=== PATIENT | female | born 1960 | race African-American/Black ===

== ENCOUNTER 2025-06-03 15:38 | Outpatient (REF) | payer MEDICARE, MEDICAID, SELFPAY | END 2025-06-03 15:39 | disposition home or self-care (01) | LOC: HO.LAB 15:38 | PROVIDERS: PCP Internal Medicine; Visit Provider Psychiatry & Neurology Neurology | DX: G56.03 Carpal tunnel syndrome, bilateral upper limbs (principal); M79.7 Fibromyalgia; G47.33 Obstructive sleep apnea (adult) (pediatric) | CPT/HCPCS: 36415; 82550; 85652; 99202 ==

== ENCOUNTER 2025-06-03 15:38 | Outpatient (AMB) | payer MEDICARE, MEDICAID, SELFPAY ==
--- OUTSIDE RECORDS SUMMARY | 2024-03-05 16:04 | XMS_ITS | Encounter Summary ---
Author Organization [facility] Address [address] [place] [address] Care Team Providers Care Multi Spindle Operator Name Role Phone Azeem Landry MD Primary Care Provider [phone] Encounter Details Date Type Department Care Team (Late st Contact Info) Description 03/05/2024 5:04 PM EDT Hospital Encounter TH HISTORIC ENCOUNTERS EASTERN CONVERSION ONLY Mira Mello PA [address] [place] [address] Social History Tobacco Use Types Packs/Day Years Used Date Smoking Tobacco: Never Smokeless Tobacco: Never Alcohol Use Standard Drinks/Week Comments Never 0 (1 standard drink = 0.6 oz pur e alcohol) Comments No Sex and Gender Information Value Date Recorded Sex Assigned at Not on file Legal Sex Female 12:11 PM EST Gender Identity Not on file Sexual Orientation Not on file documented as of this encounter Plan of Treatment Upcoming Encounters Date Type Department Care Team (Late st Contact Info) Description 06/26/2025 3:15 PM EST Appointment Bone Density [address] [address] 07/16/2025 1:00 PM EST Office Visit Internal Medicine - [address] [address] Azeem Landry MD [address] [place] [phone] documented as of this encounter Visit Diagnoses Not on filedocumented in this encounter Care Teams Multi Spindle Operator Relationship Specialty Start Date End Date Azeem Landry MD PCP - General 06/30/08 03/29/24 documented as of this encounter
--- NOTE | 2025-06-03 15:49 | A.OFFVIS_ITS ---
Intake Visit Reasons: WEAKNESS OF BOTH UPPER EXT HPI Comments Details: The patient is a 64-year-old female presenting with complaints of generalized muscle soreness, bilateral hand weakness, and poor sleep. She reports experiencing generalized muscle soreness throughout most of her body for approximately one year. She has also noticed progressive weakness in both hands, describing a loss of pulp mixer strength that causes her to drop objects, such as glasses. Associated symptoms include numbness, tingling, and aching in her hands, which are present throughout the day. She has a history of seeing an arthritis specialist for her hands. For the last 2-3 years, the patient has experienced significant sleep disturbance, now reporting that she does not feel she is sleeping at night. She wakes up frequently, at least eight times per night, with extreme mouth dryness that requires her to drink water. She reports snoring badly, sleeping with her mouth open, and gasping for air, sometimes waking up suddenly. This results in significant daytime sleepiness. A review of past labs from [place] revealed a normal CBC, metabolic profile, and liver enzymes. Her rheumatoid factor was less than 10, CRP was 0.54, TSH was 0.71, and Sjogren disease antibodies were negative. [facility] Medical History (Updated 06/03/25 @ 16:07 by Derrick Soler MD) Carpal tunnel syndrome Review of Systems Narrative - GENERAL: Reports daytime sleepiness and fatigue. - PSYCHIATRIC: Denies stress. - HEENT: Reports severe dry mouth (xerostomia), particularly at night. - RESPIRATORY: Reports snoring, sleeping with mouth open, and gasping for air at night. - MUSCULOSKELETAL: Reports constant, generalized muscle soreness and aching for approximately one year. Reports progressive weakness in both hands. - NEUROLOGICAL: Reports numbness, tingling, and aching in hands throughout the day. Reports frequent awakenings and waking up suddenly from sleep. Physical Exam Neuro Other: Mental Status: Alert and oriented to person, place, and time. Normal attention. Normal spontaneous speech, fluency, and comprehension. No obvious issues with mood and memory. Affect is appropriate. Cranial Nerves: CN II: Visual gongora full to confrontation, visual acuity intact. CN III, IV, : Pupils equal, round, reactive to light and accommodation. Extraocular movements are normal. CN V: Facial sensation is normal. CN VII: Facial movements symmetrical. CN VIII: Hearing intact to bedside conversation is normal. CN IX, X: Palate elevates symmetrically. CN XI: Shoulder shrug and head turn symmetrical. CN XII: Tongue midline without atrophy or fasciculations. Motor: Bulk and tone normal in all extremities. No significant muscle weakness in arms and legs. No drift. Reflexes: Deep tendon reflexes 1+ and symmetric. Plantar response down-going bilaterally. Coordination: Tempqs-id-vixo and qxfr-pv-tnnc testing normal. No dysmetria. Gait and Station: No obvious gait abnormality. No ataxia or instability. Extrapyramidal: Full facial expressions and blinking. No rigidity. Movements are appropriate with no tremor or abnormality. Speech: Normal; no dysarthria or tremor. Results Reviewed Results Reviewed: Labs done at [facility] this year: Her rheumatoid factor was less than 10, Sjogren disease antibodies were normal, CRP level was 0.54, TSH was 0.71, metabolic profile was normal, liver enzymes were normal, CBC was normal. Assessment & Plan Assessment & Plan (1) Obstructive sleep apnea: Code(s): G47.33 - Obstructive sleep apnea (adult) (pediatric) Category: Medical (2) Carpal tunnel syndrome: Code(s): G56.00 - Carpal tunnel syndrome, unspecified upper limb Category: Medical Qualifiers: Laterality: bilateral Qualified Code(s): G56.03 - Carpal tunnel syndrome, bilateral upper limbs (3) Myalgia: Code(s): M79.10 - Myalgia, unspecified site Category: Medical Plan Impression: a: Probably obstructive sleep apnea b: Probably bilateral carpal tunnel syndrome c: Myalgia that might be due to untreated sleep apnea Rec: a: Home sleep study b: EMG/NCS hands c: CPK, ESR I discussed with the patient that her symptoms of fatigue, snoring, and waking up gasping for air are very likely due to sleep apnea. I explained the plan to order two main tests: a home sleep study to confirm sleep apnea and a nerve test for her hands to evaluate the weakness and numbness. I also informed her that we would be ordering additional blood tests specific to her muscle aches, which could be done on the first floor today. I advised her that my paralegal legal secretary would arrange the sleep study and nerve test, and we will schedule a follow-up appointment to review the results of all tests. Orders: Orders RT home sleep study Today G47.33 - Obstructive sleep apnea (adult) (pediatric) NE nerve conduction velocity Today G56.00 - Carpal tunnel syndrome, unspecified upper limb NE electromyogram (EMG) Today G56.00 - Carpal tunnel syndrome, unspecified up per limb Creatine Kinase Total Today M79.7 - Fibromyalgia Erythrocyte Sedimentation Rate Today M79.7 - Fibromyalgia Coding Level of Care Code New Pt Level 4 (81886) Diagnoses Obstructive sleep apnea G47.33 Bilateral carpal tunnel syndrome G56.03 Laterality: bilateral Myalgia M79.10
--- OUTSIDE RECORDS SUMMARY | 2025-06-03 18:53 | XMS_ITS ---
Author Name [facility] Organization Unknown History of Medication Use Medication Directions Dispensed Refills Start Date End Date Stat us ergocalciferol (VITAMIN D2) capsule 98081 units Take 1 capsule (50,000 Units total) by mouth once a week. 11/30/2023 active Magnesium 400 MG CAPS Take 400 mg by mouth daily. 11/29/2023 active Riboflavin 400 MG CAPS Take 400 mg by mouth daily. 11/29/2023 active SUMAtriptan (IMITREX) 50 MG tablet Take 1 tablet (50 mg total) by mouth every 2 (two) hours as needed. 11/29/2023 active vitamin B-12 (CYANOCOBALAMIN) 500 MCG tablet Take 1 tablet (500 mcg total) by mouth daily. 11/29/2023 active amLODIPine (NORVASC) tablet 5 mg Take 1 tablet (5 mg total) by mouth daily. 10/19/2023 active butalbital-acetaminoph en-caffeine 50-325-40 MG per tablet TAKE 1 TABLET BY MOUTH EVERY 4 HOURS NEEDED FOR PAIN FOR UP TO 28 DAYS 10/14/2023 active levothyroxine (SYNTHROID) tablet 88 mcg Take 1 tablet (88 mcg total) by mouth daily. 06/07/2023 active Allergies Allergen Reaction Severity Comment Documented Date Source Statu s IODINATED CONTRAST MEDIA Tight throat, N&V, no hives. 10/06/2011 [facility]G active Problems Problem Status Onset Date Problem Type Date of Resolution Source Post-concussion headache active EncounterDiagnosisAct CTTHNE MG Concussion with loss of consciousness, sequela (HCC) active EncounterDiagnosisAct CTTHN EMG Vitamin D deficiency, unspecified active EncounterDiagnosisAct CTTHNE MG Care Team Organization Name Specialty Phone Email Start Date End Da te [facility] 01/22/2025 [facility] Azeem Landry Primary Care 11/11/2022 01/22/20 [facility] Azeem Landry Primary Care 04/12/2022 01/22/20 24
--- OUTSIDE RECORDS SUMMARY | 2025-06-03 18:53 | XMS_ITS | Clinical Summary ---
Author Organization [address] [facility] Address [address] [place] [address] Phone Care Team Providers Care Final Inspection Supervisor Name Role Phone Azeem Landry MD Primary Care Provider [phone] Allergies Active Allergy Reactions Criticality Noted Date Comments Iodinated Contrast Media 10/06/2011 Tight throat, N&V, no hives. Medications magnesium oxide (MAG-OX) 400 mg (241.3 elemental magnesium) tablet Take 1 tablet by mouth once daily 90 tablet 4 Active cyanocobalamin (VITAMIN B-12) 500 mcg tablet Take 1 tablet by mouth once daily 90 tablet 4 Active MULTIVITAMIN ORAL SLXYA-Q-THMP OR 1 TAB PO DAILY Active albuterol HFA (PROAIR HFA ; PROVENTIL HFA ; VENTOLIN HFA) 90 mcg/actuation inhaler Inhale 1 puff by mouth if needed. 4 Active butalbital-acetam inophen-caffeine (FIORICET, ESGIC) 50-325-40 mg per tablet Take 1 tablet by mouth 1 (one) time each day. 4 Active ergocalciferol (VITAMIN D-2) 1,250 mcg (50,000 unit) capsule Take 1 capsule (50,000 Units total) by mouth 1 (one) time per week. 4 Active amLODIPine (NORVASC) 5 mg tabletIndications :Primary hypertension Take 1 tablet (5 mg total) by mouth 1 (one) time each day. 90 tablet 1 5 Active levothyroxine (SYNTHROID, LEVOTHROID) 88 mcg tabletIndications :Hypothyroidism, unspecified type Take 1 tablet (88 mcg total) by mouth 1 (one) time each day. 90 each 1 5 09/09/19 26 Active cetirizine (ZyrTEC) 10 mg tablet Take 1 tablet (10 mg total) by mouth 1 (one) time each day. 30 each 2 5 06/12/19 26 Active buPROPion XL (WELLBUTRIN XL) 150 mg 24 hr tablet Take 1 tablet (150 mg total) by mouth 1 (one) time each day. Do not crush, chew, or split. 90 each 1 5 09/11/19 26 Active gabapentin (NEURONTIN) 300 mg capsule Take 1 capsule (300 mg total) by mouth 3 (three) times a day. 270 each 1 5 10/07/19 26 Active Active Problems Problem Noted Date Diagnosed Date Class 1 obesity with body ma ss index (BMI) of 33.0 to 33.9 in adult 05/09/2024 Intractable chronic post-traumatic headache 09/03 Pulmonary nodule 07/27/2023 Hypothyroidism 01/18/2016 Lumbar radicular pain 11/23/2015 HTN (hypertension) 09/10/2014 Major depression 02/18/2013 Encounters Date Type Department Care Team Description 04/07/2025 1:30 PM EST Consult Orthopedic Surgery - [address] [place] [address] Annie Lal PA Arthritis of both hands (Primary Dx); Mucous cyst of digit of hand; [facility] arthritis 04/02/2025 Telephone Internal Medicine - [address] [phone] Azeem Landry MD 03/19/2025 Results Follow-Up [facility] - [facility] [address] [place] [phone] Don Velasco NP 03/14/2025 1:56 PM EDT - 03/14/2025 11:59 PM EDT Hospital Encounter Xray - [address] [place] [phone] Weakness of both upper extremities Discharge Disposition: Home or Self Care 03/14/2025 1:30 PM EDT Office Visit Internal Medicine - [address] [place] [phone] Pavan Sanchez PA Adult general medical examination (Primary Dx); Encounter for screening mammogram for malignant neoplasm of breast; Asymptomatic postmenopausal state; Resistant hypertension; Mixed hyperlipidemia; Prediabetes; Bilateral hearing loss, unspecified hearing loss type 03/14/2025 Telephone Internal Medicine - [address] [place] [phone] Azeem Landry MD 03/12/2025 10:00 AM EDT Office Visit Internal Medicine [address] [place] [phone] Don Velasco NP Hypothyroidism, unspecified type (Primary Dx); Primary hypertension; Pain in both hands; Weakness of both upper extremities from Last 3 Months Immunizations Immunization Administration Dates Next Due Td Tetanus diptheria (Tdvax) 7yo and older 01/23 Medical History Medical History Date Comments Migraine DX:Migraine Hypothyroidism DX:Hypothyroidis m Hypertension DX:Hypertension Social History Tobacco Use Types Packs/Day Years Used Date Smoking Tobacco: Never Smokeless Tobacco: Never Tobacco Cessation:Counseling Given: Not Answered Alcohol Use Standard Drinks/Week Comments Never 0 (1 standard drink = 0.6 oz pur e alcohol) Comments No Sex and Gender Information Value Date Recorded Sex Assigned at Not on file Legal Sex Female 12:11 PM EST Gender Identity Not on file Sexual Orientation Not on file Last Filed Vital Signs Vital Sign Reading Time Taken Comments Blood Pressure 128/76 03/14/2025 1:42 PM EDT Pulse 78 03/14/2025 1:11 PM EDT Temperature 36.8 C (98.2 F) 01/27/2025 11:21 AM EDT Respiratory Rate - - Oxygen Saturation 97% 01/27/2025 11:21 AM EDT Inhaled Oxygen Concentration - - Weight 98 kg (216 lb) 10/03/2024 1:57 PM EDT Height 170.2 cm (5' 7 ) 03/12/2025 10:12 AM EDT Body Mass Index 33.83 09/24/2024 2:40 PM EDT Plan of Treatment Upcoming Encounters Date Type Department Care Team (Late st Contact Info) Description 06/26/2025 3:15 PM EST Appointment Bone Density - [address] [phone] 07/16/2025 1:00 PM EST Office Visit Internal Medicine - [address] [phone] Azeem Landry MD [address] [place] [phone] Health Maintenance Due Date Last Done Comments Breast Cancer Screening 1960 Drug Screen 1960 Non-Opioid Controlled Substance Agreement 1960 Pneumococcal Vaccine: 50+ Years (1 of 1 - PCV) 2008 RSV Immunization Adult Patients (1 - Risk 50-74 years 1-dose series) 2008 Zoster Vaccines (1 of 2) 2008 DTaP,Tdap,and Td Vaccines (2 - Td or Tdap) 01/24/2016 01/23/2006 Medicare Annual Wellness Visit 05/03/2022 Osteoporosis Screening (Bone Density Screening) 05/03/2022 Social Influencers of Health Screening 05/03/2022 Depression Screening 06/05/2024 06/07/2023 Falls Risk Assessment 01/22/2025 01/23/2024 COVID-19 Vaccine ( season) 2025 08/26/2022, 09/04/2020, 08/14/2020 Influenza Vaccine (#1) 2025 Postp oned from 02/03/2025 (Patient Refused) Hypertension/CHF/CAD Annual BMP Blood Test 01/27/2026 01/27/2025, 07/29/2024, 01/23/2024, Additional history exists Colorectal Cancer Screening: Colonoscopy 10/15/2028 10/15/2018 Cholesterol Screening (Lipid Panel) 07/29/2029 07/29/2024, 01/23/2024, 01/23/2024 Hepatitis C Screening Completed 07/25/2017 HIB Vaccines Aged Out No longer eligi ble based on patient's age to complete this topic HPV Vaccines Aged Out No longer eligi ble based on patient's age to complete this topic Hepatitis A Vaccines Aged Out No long er eligible based on patient's age to complete this topic Hepatitis B Vaccines Aged Out No long er eligible based on patient's age to complete this topic IPV Vaccines Aged Out No longer eligi ble based on patient's age to complete this topic MMR Vaccines Aged Out No longer eligi ble based on patient's age to complete this topic Meningococcal ACWY Vaccine Aged Out N o longer eligible based on patient's age to complete this topic Meningococcal B Vaccine Aged Out No l onger eligible based on patient's age to complete this topic RSV Immunization Patients Under 20 months Aged Out No longer eligible based on patient's age to complete this topic Varicella Vaccines Aged Out No longer eligible based on patient's age to complete this topic Procedures Procedure Name Priority Date/Time Associated Diagnosis Comments AK ARTHROCENTESIS/ASPIRA TION/INJECTION SMALL JOINT/BURSA WO U/S GUIDANCE Routine 04/07/2025 1:30 PM EST Mucous cyst of digit of hand XR HAND 3+ VIEWS BILAT Routine 03/14/2025 2:03 PM EDT Weakness of both upper extremities COMPREHENSIVE METABOLIC PANEL Routine 01/27/2025 11:55 AM EDT Chronic fatigue and malaise LIPID PANEL WITH REFLEX TO DIRECT LDL Routine 07/29/2024 2:02 PM EST Primary hypertension FALLS RISK ASSESSMENT Routine 01/23/2024 DEPRESSION SCREENING Routine 06/07/2023 COLONOSCOPY Routine 10/15/2018 HEPATITIS C SCREENING Routine 07/25/2017 from Last 3 Months or Most Recently Relevant to Health Maintenance Results * AK ARTHROCENTESIS/ASPIRATION/INJECTION SMALL JOINT/BURSA WO U/S GUIDANCE (04/07/2025 1:30 PM EST) Narrative Annie Lal PA - 04/07/2025 1:30 PM EST SUMIT Garcia 04/07/2025 3:43 PM S Inj/Asp: L ring DIP Indications: pain Details: 18 G needle, dorsal approach Aspirate: 1 mL Aspiration of mucous cyst at the left ring finger DIP joint with clear gelatinous fluid expressed. us Annie ARANA IN CLINIC/BEDSIDE ORDERABLES Final Result * XR Hand 3+ Views bilat (03/14/2025 2:03 PM EDT) Anatomical Region Laterality Modality Upper Extremities, Hand Bilateral Radiogra phic Imaging 03/14/2025 4:05 PM EDT Impressions 03/14/2025 4:06 PM EDT Severe osteoarthritis of the bilateral DIP joints. -------- FINAL REPORT -------- Dictated By: Paty Pacheco Dictated Date: 03/14/2025 16:05 ET Assigned Physician: Paty Pacheco Reviewed and Electronically Signed By: Paty Pacheco Signed Date: 03/14/2025 16:06 ET Workstation ID: [id number] Transcribed By: Self Edit Transcribed Date: 03/14/2025 16:05 ET Narrative 03/14/2025 4:06 PM EDT HISTORY: OTHER hand pain TECHNIQUE: AP, lateral, and oblique radiographs of the bilateral hands COMPARISON: None FINDINGS: Right: No acute fracture or dislocation of the right hand. There is severe joint space narrowing at the second, fourth and fifth DIP joints with subchondral sclerosis and moderate-sized osteophytes. Left: No acute fracture or dislocation. There are severe joint space narrowing at the third, fourth and fifth DIP joints with subchondral sclerosis and moderate-sized osteophytes. No significant soft tissue swelling. Procedure Note Paty Pacheco MD - 03/14/2025 HISTORY: OTHER hand pain TECHNIQUE: AP, lateral, and oblique radiographs of the bilateral hands COMPARISON: None FINDINGS: Right: No acute fracture or dislocation of the right hand. There is severe jointspace narrowing at the second, fourth and fifth DIP joints withsubchondral sclerosis and moderate-sized osteophytes. Left: No acute fracture or dislocation. There are severe joint space narrowingat the third, fourth and fifth DIP joints with subchondral sclerosis andmoderate-sized osteophytes. No significant soft tissue swelling. IMPRESSION: Severe osteoarthritis of the bilateral DIP joints. -------- FINAL REPORT -------- Dictated By: Paty Pacheco Dictated Date: 03/14/2025 16:05 ET Assigned Physician: Paty Pacheco Reviewed and Electronically Signed By: Paty Pacheco Signed Date: 03/14/2025 16:06 ET Workstation ID: [id number] Transcribed By: Self Edit Transcribed Date: 03/14/2025 16:05 ET Don Velasco RESEARCH ASSOCIATE POLICY IMG XR PROCEDURES Final Result * Comprehensive metabolic panel (01/27/2025 11:55 AM EDT) Sodium 138 133 - 145 mmol/L LAB CHEMISTRY METHOD 01/27/2025 8:55 PM [facility] Potassium 4.1 3.5 - 5.5 mmol/L LAB CHEMISTRY METHOD 01/27/2025 8:55 PM [facility] Chloride 106 96 - 110 mmol/L LAB CHEMISTRY METHOD 01/27/2025 8:55 PM [facility] CO2 27 21 - 32 mmol/L LAB CHEMISTRY METHOD 01/27/2025 8:55 PM [facility] Anion Gap 5 3 - 11 LAB CHEMISTRY METHOD 01/27/2025 8:55 PM [facility] Glucose 74 70 - 100 mg/dL LAB CHEMISTRY METHOD 01/27/2025 8:55 PM [facility] BUN 14 5 - 25 mg/dL LAB CHEMISTRY METHOD 01/27/2025 8:55 PM [facility] Creatinine 0.89 0.50 - 1.10 mg/dL LAB CHEMISTRY METHOD 01/27/2025 8:55 PM T [facility] eGFR 72 >=60 mL/min/1. 73m2 LAB CHEMISTRY METHOD 01/27/2025 8:55 PM [facility] Comment:Calculation based on the Chronic Kidney Disease Epidemiology Collaboration (CKD-EPI) equation refit without adjustment for race. BUN/Creatinine Ratio 15.7 LAB CHEMISTRY METHOD 01/27/2025 8:55 PM T [facility] Calcium 9.2 8.5 - 10.5 mg/dL LAB CHEMISTRY METHOD 01/27/2025 8:55 PM [facility] AST (SGOT) 20 10 - 42 unit/L LAB CHEMISTRY METHOD 01/27/2025 8:55 PM [facility] ALT (SGPT) 36 10 - 60 unit/L LAB CHEMISTRY METHOD 01/27/2025 8:55 PM [facility] Alkaline Phosphatase 115 42 - 121 unit/L LAB CHEMISTRY METHOD 01/27/2025 8:55 PM [facility] Total Protein 7.4 6.0 - 8.0 g/dL LAB CHEMISTRY METHOD 01/27/2025 8:55 PM [facility] Albumin 3.7 3.2 - 5.0 g/dL LAB CHEMISTRY METHOD 01/27/2025 8:55 PM [facility] Total Bilirubin 0.4 0.0 - 1.4 mg/dL LAB CHEMISTRY METHOD 01/27/2025 8:55 PM [facility] Blood Venous blood specimen / Unknown Venipuncture / Unknown 01/27/2025 11:55 AM EDT 01/27/2025 11:55 AM EDT us Pankaj Meza NP LAB BLOOD ORDERABLES Final Re sult [facility] [address] [place] [address], [place] [phone] * (ABNORMAL) Lipid panel with reflex to direct LDL (07/29/2024 2:02 PM EST) [facility] Cholesterol 175 0 - 200 mg/dL LAB CHEMISTRY METHOD 07/29/2024 4:06 PM EST [facility] Triglycerides 59 0 - 150 mg/dL LAB CHEMISTRY METHOD 07/29/2024 4:06 PM EST [facility] HDL 59 >=40 mg/dL LAB CHEMISTRY METHOD 07/29/2024 4:06 PM EST [facility] LDL Calculated 104(H) 0 - 100 mg/dL LAB CHEMISTRY METHOD 07/29/2024 4:06 PM EST [facility] VLDL Cholesterol Óscar 11.8 mg/dL LAB CHEMISTRY METHOD 07/29/2024 4:06 PM EST [facility] Non HDL Chol. (LDL+VLDL) 116 <145 mg/dL LAB CHEMISTRY METHOD 07/29/2024 4:06 PM EST [facility] Chol/HDL Ratio 3.0 0.0 - 4.4 LAB CHEMISTRY METHOD 07/29/2024 4:06 PM EST [facility] Blood Venous blood specimen / Unknown Venipuncture / Unknown 07/29/2024 2:02 PM EST 07/29/2024 2:02 PM EST Azeem Landry MD LAB BLOOD ORDERABLES Final Res ult [facility] [address] [place] [address], [place] [phone] * Falls Risk Assessment (01/23/2024) [facility] Falls Risk Assessment Abstracted us Parker Damon MD HEALTH MAINTENANCE Final Result * Depression Screening (06/07/2023) [facility] Depression Screening Abstracted Historical Provider HEALTH MAINTENANCE Final Result * Colonoscopy (10/15/2018) Colonoscopy No Interpretation , Abstracted Anatomical Region Laterality Modality Other Historical Provider HEALTH MAINTENANCE Final Result * Hepatitis C Screening (07/25/2017) Hepatitis C Screening Abstracted Historical Provider HEALTH MAINTENANCE Final Result from Last 3 Months or Most Recently Relevant to Health Maintenance Insurance MEDICARE [place] Care Teams Final Inspection Supervisor Relationship Specialty Start Date End Date Azeem Landry MD [address] [place] [phone] PCP - General Internal Medicine 03/30/24
--- OUTSIDE RECORDS SUMMARY | 2025-06-03 18:53 | XMS_ITS | Clinical Summary ---
Author Organization [facility] Prior to 11/02/24 Address [address] [place] [address] Care Team Providers Care Production Expert Name Role Phone Azeem Landry MD Primary Care Provider [phone] Allergies Active Allergy Reactions Criticality Noted Date Comments Iodinated Contrast Media 10/06/2011 Tight throat, N&V, no hives. Medications Medication Sig Dispensed Refills Start Date End Date Status amLODIPine (NORVASC) tablet 5 mg Take 1 tablet (5 mg total) by mouth daily. 0 10/19/2023 Active butalbital-acetamino phen-caffeine 50-325-40 MG per tablet TAKE 1 TABLET BY MOUTH EVERY 4 HOURS NEEDED FOR PAIN FOR UP TO 28 DAYS 0 10/14/2023 Active levothyroxine (SYNTHROID) tablet 88 mcg Take 1 tablet (88 mcg total) by mouth daily. 0 06/07/2023 Active SUMAtriptan (IMITREX) 50 MG tablet Take 1 tablet (50 mg total) by mouth every 2 (two) hours as needed. 10 tablet 0 11/29/2023 Active vitamin B-12 (CYANOCOBALAMIN) 500 MCG tablet Take 1 tablet (500 mcg total) by mouth daily. 30 tablet 3 11/29/2023 Active Riboflavin 400 MG CAPS Take 400 mg by mouth daily. 30 capsule 3 11/29/2023 Active Magnesium 400 MG CAPS Take 400 mg by mouth daily. 30 capsule 3 11/29/2023 Active ergocalciferol (VITAMIN D2) capsule 33548 units Take 1 capsule (50,000 Units total) by mouth once a week. 4 capsule 12 11/30/2023 Active Social History Tobacco Use Types Packs/Day Years Used Date Smoking Tobacco: Never Smokeless Tobacco: Never Tobacco Cessation:Counseling Given: Not Answered Alcohol Use Standard Drinks/Week Comments Never 0 (1 standard drink = 0.6 oz pur e alcohol) Sex and Gender Information Value Date Recorded Sex Assigned at Female 10/20/2023 3:46 PM EDT Gender Identity Not on file Sexual Orientation Not on file Job Start Date Occupation Industry Not on file Not on file Not on file Last Filed Vital Signs Vital Sign Reading Time Taken Comments Blood Pressure 149/85 01/30/2024 1:45 PM EDT Pulse 77 01/30/2024 1:45 PM EDT Temperature 36.1 C (97 F) 01/30/2024 1:45 PM EDT Respiratory Rate - - Oxygen Saturation 96% 01/30/2024 1:45 PM EDT Inhaled Oxygen Concentration - - Weight 98 kg (216 lb) 01/30/2024 1:45 PM EDT Height 170.2 cm (5' 7 ) 01/30/2024 1:45 PM EDT Body Mass Index 33.83 01/30/2024 1:45 PM EDT Plan of Treatment Health Maintenance Due Date Last Done Comments Hepatitis C Screening 1960 COVID-19 Vaccine (#1) 02/11/1959 Depression Screening 1970 BMI Counseling 1976 Preventative Health Evaluation 1976 DTap / Tdap / Td (1 - Tdap) 1977 Colon Cancer Screening (Colonoscopy) 08/12/2003 Breast Cancer Screening (Mammogram) 2008 Shingrix-Zoster Vaccine (1 of 2) 2008 Fall Risk Assessment 08/12/2023 Osteoporosis Screening (DEXA Scan) 08/12/2023 Pneumococcal Vaccine (1 of 1 - PCV) 08/12/2023 Influenza Vaccine (#1) 2025 RSV Adult > 60+ Yrs or Pregn ant (1 - 1-dose 75+ series) 2033 Hepatitis B Vaccines Aged Out No long er eligible based on patient's age to complete this topic RSV Ped < 20 months Aged Out No longe r eligible based on patient's age to complete this topic Care Teams Production Expert Relationship Specialty Start Date End Date Azeem Landry MD PCP - General Internal Medicine 10/20/23
== END 2025-06-03 16:14 | disposition home or self-care (01) ==
LOC: HO.HSM 15:39
PROVIDERS: PCP Internal Medicine; Visit Provider Psychiatry & Neurology Neurology
DX: G47.33 Obstructive sleep apnea (adult) (pediatric) (principal); G56.03 Carpal tunnel syndrome, bilateral upper limbs; M79.10 Myalgia, unspecified site
CPT/HCPCS: 99204